=== PATIENT | female | born 1950 | race Caucasian/White ===

== ENCOUNTER 2017-03-16 10:24 | Day surgery (SDC) | payer MEDICARE ==
[~2017-03-16] VITALS: Ht 160 cm; Wt 66.4 kg
[~2017-03-16 10:24] MED LIST: ASPI-496 PO; ATOR20TA PO; CALC-471 PO; CHOL2000 PO; DULO30CA2 PO; LEVO125T PO; TRAZ150T62 PO; VERA120T5 PO
[2017-03-16 10:53] VITALS: BP 155/68
[2017-03-16] MEDS ORDERED: SODIUM CHLORIDE 0.9% 1,000 ML IV ONE (11:00)
[2017-03-16] MEDS ORDERED: TRIA1CAP PO (11:12)
[2017-03-16] MEDS ORDERED: PROPOFOL 10 MG/ML, 20ML ONE (12:16)
== END 2017-03-16 13:28 ==
LOC: OUT 10:24 → EDSTATUS 12:00 → OUT 13:28
PROVIDERS: ATTEND Internal Medicine Cardiovascular Disease
DX: I07.1 Rheumatic tricuspid insufficiency (principal); I34.0 Nonrheumatic mitral (valve) insufficiency; I45.10 Unspecified right bundle-branch block; I51.7 Cardiomegaly; I10 Essential (primary) hypertension; E03.9 Hypothyroidism, unspecified; E78.5 Hyperlipidemia, unspecified; Z79.82 Long term (current) use of aspirin; Z88.1 Allergy status to other antibiotic agents; Z88.8 Allergy status to other drugs, medicaments and biological substances
CPT/HCPCS: 93312; 93321; 93325; J2704

== ENCOUNTER → 2020-03-21 | Outpatient (CLI) | payer MEDICARE ==
[~2020-03-21] MED LIST changes: +TRIA1CAP PO; +VERA120T13 PO; -VERA120T5 PO
== END | disposition home or self-care (01) ==
LOC: CFH 08:51
PROVIDERS: ATTEND Internal Medicine Cardiovascular Disease
DX: I08.8 Other rheumatic multiple valve diseases (principal); I11.9 Hypertensive heart disease without heart failure
CPT/HCPCS: 93306